=== PATIENT | female | born 1950 | race Caucasian/White ===

== ENCOUNTER → 2018-07-19 | Outpatient (CLI) | payer MEDICARE, OTHER ==
[2018-07-19 10:25] LABS: CHOLESTEROL 196 mg/dL (<200); HDL CHOLESTEROL 39 mg/dL (>40); LDL CHOLESTEROL 99 mg/dL (<100); SERUM ASSESSMENT Clear; TRIGLYCERIDE 293 mg/dL (<150); VLDL 59 mg/dL (<40)
== END ==
LOC: M.LAB 09:41
PROVIDERS: Internal Medicine Cardiovascular Disease
DX: E78.2 Mixed hyperlipidemia (principal)

== ENCOUNTER → 2019-07-03 | Outpatient (CLI) | payer MEDICARE, OTHER | LOC: M.RAD 14:12 | DX: M17.11 Unilateral primary osteoarthritis, right knee (principal); M25.461 Effusion, right knee ==

== ENCOUNTER → 2020-06-11 | Outpatient (CLI) | payer MEDICARE, OTHER | LOC: M.CT 16:30 | PROVIDERS: ATTEND Family Medicine | DX: K31.89 Other diseases of stomach and duodenum (principal); M47.816 Spondylosis without myelopathy or radiculopathy, lumbar region; M48.061 Spinal stenosis, lumbar region without neurogenic claudication; M41.86 Other forms of scoliosis, lumbar region; I70.0 Atherosclerosis of aorta; Z90.49 Acquired absence of other specified parts of digestive tract ==

== ENCOUNTER → 2020-08-28 | Outpatient (CLI) | payer MEDICARE, OTHER | LOC: M.LAB 14:43 | PROVIDERS: ATTEND Surgery | DX: Z01.812 Encounter for preprocedural laboratory examination (principal); K80.20 Calculus of gallbladder without cholecystitis without obstruction; Z20.828 Contact with and (suspected) exposure to other viral communicable diseases ==

== ENCOUNTER → 2020-09-02 | Day surgery (SDC) | payer MEDICARE, OTHER ==
[~2020-09-02] MED LIST: ALDACTONE50 MG PO; CALCIUM 600+D1 EACH PO; CARVEDILOL25 MG PO; ESTRADIOL10 MCG VAG; FENOFIBRATE145 M1 PO; HYDROCHLOROTHIA25 M2 PO; LISINOPRIL5 MG PO; MAGNESIUM500 MG PO; METROGEL60 GM TOP; MULTIVITAMINS PO; NORCO 10-325 T1 EACH PO; REQUIP 1 MG TABL1 M1 PO; VITAMIN D3125 MC3 PO; ZINC50 M2 PO
--- NOTE | ~2020-09-02 | OP ---
[facility] [address] [place] [address] OPERATIVE REPORT Name: JAILENE CABRAL [id number] Admission: 09/02/20 Attend Phys: Yayo Nolasco Discharge: Date of : 48 Report #: [id number] THIS REPORT FOR: cc: Jonathan Lewis Vincent R. DO ~ Yayo Nolasco MD DATE OF SERVICE: 09/02/2020 PREOPERATIVE DIAGNOSIS: Chronic cholecystitis. POSTOPERATIVE DIAGNOSIS: Chronic cholecystitis. OPERATION: Laparoscopic cholecystectomy. SURGEON: Yayo Nolasco MD. ANESTHESIA: General. ESTIMATED BLOOD LOSS: Minimal. SPECIMEN: Gallbladder. DESCRIPTION OF PROCEDURE: After informed consent was obtained, the patient was brought to the operating room and placed supine. SCDs were placed and working, preoperative antibiotics were administered, general anesthesia was induced. The abdomen was prepped and draped in the usual sterile fashion. A 10 mm incision was made above the umbilicus. Fascia was incised and a trocar was placed. Pneumoperitoneum was established. Three right upper quadrant 5 mm ports were placed. Gallbladder was grasped at the fundus and retracted cephalad. Infundibulum was grasped and retracted laterally. I dissected out the cystic duct and cystic artery and the cystic plate. Pictures were taken to document this. Cystic duct and artery were clipped and ligated leaving a clip and a PDS Endoloop on the remaining duct and a clip on the remaining artery. Gallbladder was then taken off the liver bed with electrocautery. It was placed into an Endopouch and removed. The fascia was then closed with a qrofrv-ax-anren 0 Vicryl. Skin was closed with 4-0 Monocryl. Incisions were sealed with Dermabond. COMPLICATIONS: None. DISPOSITION: The patient was taken to recovery in satisfactory condition. By: [id number] Nolasco MD /regino
[2020-09-02 09:52] LABS: HEMATOCRIT 37.1 % (37.0-47.0); HEMOGLOBIN 12.6 gm/dL (12.0-15.0); MCH 30.2 pg (26.0-34.0); MPV 8.3 fl. (7.2-11.1); RBC 4.17 mil/uL (4.20-5.00); WBC 6.3 thou/uL (4.0-11.0)
[2020-09-02 10:00] LABS: CALCIUM 9.8 mg/dL (8.5-10.1); CREATININE 1.6 mg/dL (0.6-1.3); POTASSIUM 3.9 mmol/L (3.5-5.1)
[2020-09-02 10:11] LABS: ALBUMIN 3.7 g/dL (3.4-5.0); TOTAL BILIRUBIN 0.3 mg/dL (<0.1-1.0); TOTAL PROTEIN 7.3 g/dL (6.4-8.2)
--- NOTE | 2020-09-02 12:43 | EKG ---
[place] [address] ELECTROCARDIOGRAM REPORT Name: JAILENE CABRAL [facility]#: [id number] Admission: 09/02/20 Attend Phys: Yayo Anton Discharge: Date of : 48 Date of Service: 09/02/20 0959 Report #: [id number] THIS REPORT FOR: //name// [facility] Test Date: 2020-09-02 Test Time: 09:59:07 Pat Name: JAILENE CABRAL Department: Room: Gender: F Various Exceptionalities Teacher: LISA CANAS : 1950 Requested By: Yayo Nolasco Order Number: [id number] Reading MD: Wesley Valadez Measurements Intervals [place] Rate: 60 P: 43 VT: 197 QRS: 48 QRSD: 119 T: 37 QT: 430 QTc: 430 Interpretive Statements Sinus rhythm Nonspecific intraventricular conduction delay No previous ECG available for comparison Electronically Signed On 09-02-2020 12:43:26 RD PROJECT MANAGER by Wesley Valadez [email or web address] <ELECTRONICALLY SIGNED> By: Wesley Valadez MD, [facility] 09/02/20 1243 0959 0959 Wesley Valadez MD, [facility] /EPI
== END | disposition home or self-care (01) ==
LOC: M.SUR 06:35
PROVIDERS: ATTEND Surgery
DX: K81.1 Chronic cholecystitis (principal); R10.11 Right upper quadrant pain; K21.9 Gastro-esophageal reflux disease without esophagitis; Z79.899 Other long term (current) drug therapy; Z98.890 Other specified postprocedural states; Z88.8 Allergy status to other drugs, medicaments and biological substances

== ENCOUNTER → 2020-09-29 | Outpatient (CLI) | payer MEDICARE, OTHER ==
[~2020-09-29] MED LIST changes: +XARELTO10 MG PO
[2020-09-29 10:16] LABS: HEMATOCRIT 37.5 % (37.0-47.0); HEMOGLOBIN 12.5 gm/dL (12.0-15.0); MCH 29.6 pg (26.0-34.0); MCHC 33.3 g/dL (28.0-37.0); MPV 8.5 fl. (7.2-11.1); RBC 4.21 mil/uL (4.20-5.00); WBC 7.5 thou/uL (4.0-11.0)
[2020-09-29 10:27] LABS: URINE BILIRUBIN NEGATIVE (Negative); URINE BLOOD NEGATIVE (Negative); URINE CLARITY CLEAR; URINE COLOR YELLOW; URINE GLUCOSE-RANDOM NEGATIVE (Negative); URINE KETONES NEGATIVE (Negative); URINE LEUKOCYTES-REFLEX NEGATIVE (Negative); URINE NITRITE-REFLEX NEGATIVE (Negative); URINE PROTEIN NEGATIVE (Negative); URINE UROBILINOGEN 0.2 E.U./dl (0.2-1.0)
[2020-09-29 10:29] LABS: PROTIME 10.4 Seconds (9.20-11.50)
[2020-09-29 10:32] LABS: ALBUMIN 3.8 g/dL (3.4-5.0); CALCIUM 9.9 mg/dL (8.5-10.1); CREATININE 1.5 mg/dL (0.6-1.3); POTASSIUM 4.7 mmol/L (3.5-5.1); TOTAL BILIRUBIN 0.3 mg/dL (<0.1-1.0); TOTAL PROTEIN 7.5 g/dL (6.4-8.2)
== END ==
LOC: M.LAB 10:03
PROVIDERS: ATTEND Orthopaedic Surgery
DX: Z01.812 Encounter for preprocedural laboratory examination (principal); Z20.822 Contact with and (suspected) exposure to COVID-19; M17.11 Unilateral primary osteoarthritis, right knee

== ENCOUNTER 2020-10-06 07:10 | Inpatient (IN) | payer MEDICARE, OTHER ==
[~2020-10-06] VITALS: Ht 165.1 cm; Wt 78.5 kg
--- NOTE | ~2020-10-06 | OP ---
[facility] [address] [place] [address] OPERATIVE REPORT Name: JAILENE CABRAL Room: [address] M.R.#: [id number] Admission: 10/06/20 Attend Phys: Minal Houser Discharge: Date of : 48 Report #: [id number] THIS REPORT FOR: cc: Jonathan Lewis Vincent R. DO ~ Jack Real II, DO DATE OF SERVICE: 10/06/2020 PREOPERATIVE DIAGNOSIS: Right knee osteoarthritis. POSTOPERATIVE DIAGNOSIS: Right knee osteoarthritis. PROCEDURE: Right total knee arthroplasty with Navio. SURGEON: Jack Real II, DO COMMUNICATIONS BILLING ANALYST: TALIA Dukes ANESTHESIA: General endotracheal. ESTIMATED BLOOD LOSS: 50 mL. ANTIBIOTICS: Ancef preoperatively. DRAINS: Medium Hemovac. COMPLICATIONS: None. CONDITION OF THE PATIENT: Stable to recovery room. IMPLANTS: Listed in operative record and progress note. BRIEF HISTORY: The patient was seen in the preoperative area. Preoperative H and P was performed. Site was marked, questions were answered. Risks and benefits were discussed with the patient in detail about surgery. The patient wished to proceed assuming all risks. DESCRIPTION OF PROCEDURE: The patient was taken to the operative suite and placed supine on the operating table, given appropriate anesthesia. A well-padded tourniquet was then applied to the upper thigh, which was inflated to 300 mmHg after gravity exsanguination. The operative knee was sterilely prepped and draped. Surgery began by midline incision. This was carried down to the subcutaneous tissues. A medial parapatellar arthrotomy was performed and carried down to bone. Patella was then everted and excess soft tissues and osteophytes removed from around the femur and tibia. The femoral and tibial [address] [address] OPERATIVE REPORT Name: JAILENE CABRAL Room: [address] [place] ..#: [id number] Admission: 10/06/20 Attend Phys: Minal Houser Discharge: Date of : 48 Report #: [id number] Navio alignment guides were then placed with 2 pins in the tibia and femur respectively. This was then registered in the [employer] software and the robotic handpiece was activated. The appropriate tracker alignments were applied through the femur and tibia. The femur was then cut in appropriate fashion, sized to appropriate size and the 4-in-1 cutting block was then applied, checked with the Navio for appropriate cutting alignment and appropriate cuts were made. Bone was then removed. Tibial baseplate cutting guide was then applied, checked with [employer] robotic handpiece for appropriate alignment, pinned in appropriate position and appropriate cuts were made. This bone was then removed. Excess meniscus was removed from around the inner joint space. The tibial base plate was then applied, checked for rotational alignment with the drop ben and pinned in appropriate position. Femur was then applied and box cut was reamed. This was then trialed with appropriate spacer, which showed excellent fit and fill and excellent stability of the knee throughout all range of motion. The patella was reamed in appropriate fashion and sized to appropriate size. Three peg holes were drilled and it was then trialed and showed excellent flexion and extension, excellent tracking of the patella within the groove. These trials were removed and the tibia was punched in appropriate fashion. Bone ends were cleansed with Pulsavac irrigation and cement was applied to final implants. These were then malleted into position and held the knee in extension and compressed to allow cement to cure. After it cured, excess was removed using a [place]uda and osteotome. Wound was then copiously irrigated and the final spacer was malleted into position. The tourniquet was deflated. Hemostasis was obtained with electrocautery. Pain cocktail was injected. PRP gel sprayed throughout the internal aspects of the knee. Medium Hemovac drain was applied. Capsule was closed with #2 FiberWire and #1 Vicryl in gbwszz-yp-cgzmn fashion. Skin was closed with 2-0 Vicryl and running 3-0 Monocryl. Dermabond and sterile dressing applied. Ac wrap and PolarCare applied. The patient transported to recovery room in stable condition. Counts were correct throughout the procedure. By: 23 Rkobe Real II, DO /nt
[~2020-10-06 07:10] MED LIST changes: -XARELTO10 MG PO
[2020-10-06 07:52] VITALS: BP 127/67
[2020-10-06 13:27] VITALS: BP 119/68
--- NOTE | 2020-10-06 13:32 | NUR ---
PT ADMITTED POST OP KNEE REPLACEMENT. PT ORIENTED TO ROOM. PT ALERT AND ORIENTED AND DROWSY. PAIN MEDS GIVEN IN PACU. PT EDUCATED ON USING CALL LIGHT WHEN NEEDING PAIN MEDS. FALL RISK PRECAUTIONS IN PLACE.
[2020-10-06 16:00] VITALS: BP 131/68
--- NOTE | 2020-10-06 17:18 | NUR ---
PT REMAINED ALERT AND ORIENTED. PT RESTING IN BED. PT DENIES PAIN UNLESS MOVING, PT EDUCATED ON USING CALL LIGHT WHEN NEED PAIN MEDS AND TO KEEP ON TOP OF PAIN POST OP. PT TOLERATING DIET. VOIDING TRIAL IN PLACE. FALL RISK PRECAUTIONS IN PLACE. HOURLY ROUNDING COMPLETED.
[2020-10-06 20:00] VITALS: BP 133/51
[2020-10-07 00:06] VITALS: BP 146/63
[2020-10-07 04:51] VITALS: BP 129/58
--- NOTE | 2020-10-07 05:17 | NUR ---
PT A&O X 4. ON 3L WITH CAPNO. PAIN MANAGED WITH NORCO. HEMOVAC IN PLACE. MEDS GIVEN ORDERED. NO C/O N/V. UP TO BSC WITH MINIMUM ASSIST. POLAR PACK IN PLACE. PT TOLERATED CPM -5 TO 75. CALL LIGHT WITHIN REACH. WILL CONTINUE TO MONITOR.
[2020-10-07 06:19] LABS: HEMATOCRIT 29.4 % (37.0-47.0)
[2020-10-07 07:45] VITALS: BP 140/61
--- NOTE | 2020-10-07 09:23 | NUR ---
RECIEVED O.T. ORDERS. WILL DEFER TO P.T. AT THIS TIME. PLEASE ORDER FURTHER O.T. SERVICES IF NEEDED.
[2020-10-07 11:44] VITALS: BP 131/46
[2020-10-07 16:12] VITALS: BP 157/63
--- NOTE | 2020-10-07 16:30 | NUR ---
SPOKE WITH PT.,WHO WAS IN BED. AT BEDSIDE. PT.A&O. SHE SAID SHE LIVES WITH HER . THERE ARE 12 STAIRS TO GET INSIDE, BUT ONCE IN NO STAIRS. SHE IS HOPING SHE DOES THE STAIRS BETTER TOMORROW,SO SHE CAN GO HOME. SHE HAS A WALKER IN ROOM FROM HOME.THEY HAVE GRAB BARS,HIGH TOILETS. SHE IS NORMALLY INDEPENDENT. HER CAN ASSIST HER AT DISCHARGE. SHE WOULD LIKE TO USE [facility] AT DISCHARGE. REFERRAL FAXED TO [facility] CM WILL SEE IN AM AFTER THERAPY SESSION.
--- NOTE | 2020-10-07 17:37 | NUR ---
PATIENT CURRENTLY SITTING UP IN BED EATING DINNER WITH AT BEDSIDE. PATIENT HAS REMAINED A&OX4, COOPERATIVE WITH CARES THIS SHIFT. PATIENT IS CURRENTLY ON ROOM AIR PER HER REQUEST (SHE DOES NOT WEAR O2 AT HOME) AND LAST O2 SATURATION WAS 95%. HALF NS CURRENLTY INFUSING IN LEFT FOREARM ORDERED. PATIENT HAS REQUIRED PRN PAIN MEDICATION DURING SHIFT HOWEVER WISHES NOT TO HAVE OXYCODONE UNLESS IS IT BED TIME. PATIENT PARTICIPATED WITH THERAPY TODAY HOWEVER PT DID NOT FEEL SHE WAS QUITE READY TO BE DISCHARGED HOME TODAY. CALL LIGHT AND FREQUENTLY USED ITEMS WITHIN REACH.
[2020-10-07 20:00] VITALS: BP 175/77
[2020-10-08] VITALS (7 sets, daily range): BP systolic 110–158; BP diastolic 53–65
[2020-10-08 04:21] LABS: HEMATOCRIT 28.7 % (37.0-47.0); HEMOGLOBIN 9.7 gm/dL (12.0-15.0)
--- NOTE | 2020-10-08 07:50 | NUR ---
Alert and oriented x 4. She is up with assist x 1 and walker to bedside commode. She is voiding well. Milk of mag given at bedtime. She has polarcare to rt knee and dressing is intact with hemovac in place. She has been in CPM x 2 this shift, -5 to 76. She has had cox meds about evry 2 hours. She has slept well.
[2020-10-08] MEDS ORDERED: XARELTO10 MG PO (09:34)
--- NOTE | 2020-10-08 16:00 | NUR ---
[place]/PT SAID PT.NOT SAFE FOR DISCHARGE. UNABLE TO COMPLETE STAIR TRAINING DUE TO PAIN. DISCUSSED WITH PT. SHE SAID SHE WANTED TO STAY ONE MORE DAY. SHE DID NOT WANT TO TALK ABOUT GOING TO SNF.
--- NOTE | 2020-10-08 18:33 | NUR ---
PATIENT HAS REMAINED A&OX4 THIS SHIFT, PLEASANT AND COOPERATIVE WITH CARES. PATIENT HAS WORKED WELL WITH THERAPY THIS SHIFT HOWEVER PT FELT SHE NEEDED TO STAY ONE MORE NIGHT AND HAVE AT LEAST ONE MORE SESSION WITH STAIRS BEFORE GOING HOME. PATIENT HAS COMPLAINED LESS OF PAIN AND REQUIRED LESS PRN PAIN MEDICATION THIS SHIFT. PATIENT HAD MODERATE BM THIS EVENING AND STATES "I FEEL BETTER". CALL LIGHT AND FREQUENTLY USED ITEMS WITHIN REACH.
[2020-10-09 04:06] VITALS: BP 111/66
--- NOTE | 2020-10-09 07:27 | NUR ---
Alert and oriented x 4. Rt knee acewrap dressing with polarcare in place. Vitals are in stable. She was in CPM 2 hours last evening -5-78. She is alernating hydrocodone with oxycodone for knee pain. She gets up very well with walker and gaitbelt she had a BM yesterday.
[2020-10-09 08:00] VITALS: BP 130/57
[2020-10-09 13:56] VITALS: BP 147/58
[2020-10-09 15:18] VITALS: BP 147/58
--- NOTE | 2020-10-09 15:21 | NUR ---
PT.TO DISCHARGE TODAY,HOME WITH HOME HEALTH. NOTIFIED [facility] AND FAXED DISCHARGE ORDERS TO THEM. SHARAD SAID SHE RECEIVED THE ORDERS AND THEY WILL SEE HER THIS WEEKEND.
--- NOTE | 2020-10-09 15:46 | NUR ---
PT ALERT AND ORIENTED. PT TAKEN OUT BY WHEELCHAIR. PT TOLERATED WELL. PT SAFE WITH STANDBY ASSIST TO THE CAR. PT STATES PAIN MED HELPED. PT LEFT WITH VISHNU HOSE IN PLACE. HEMAVAC REMOVED. PRESSURE APPLIED. GAUZE AND TAGADERM APPLIED TO SITE. PT LEFT WITH POLAR PACK AND CPM MACHINE. SURGICAL DRESSING REMAINS IN PLACE ON RIGHT KNEE.
[2020-10-09 16:56] VITALS: BP 147/58
== END 2020-10-09 16:00 | disposition home health service (06) | DRG 470 ==
LOC: M.TBA 07:10 → M.3W 07:10 → M.ORTHSURG 08:53 → M.3W 13:07
PROVIDERS: Orthopaedic Surgery; ADMIT Internal Medicine; ATTEND Internal Medicine
PROC: 0SRC0J9 Replacement of Right Knee Joint with Synthetic Substitute, Cemented, Open Approach (ICD-10-PCS; principal; 2020-10-06)
PROC: 8E0Y0CZ Robotic Assisted Procedure of Lower Extremity, Open Approach (ICD-10-PCS; principal; 2020-10-06)
DX: M17.11 Unilateral primary osteoarthritis, right knee (principal); K21.9 Gastro-esophageal reflux disease without esophagitis; G25.81 Restless legs syndrome; G62.9 Polyneuropathy, unspecified; N18.30 Chronic kidney disease, stage 3 unspecified; I12.9 Hypertensive chronic kidney disease with stage 1 through stage 4 chronic kidney disease, or unspecified chronic kidney disease; E78.5 Hyperlipidemia, unspecified; Z88.8 Allergy status to other drugs, medicaments and biological substances; Z90.49 Acquired absence of other specified parts of digestive tract; Z79.899 Other long term (current) drug therapy

== ENCOUNTER → 2021-01-25 | Outpatient (CLI) | payer MEDICARE, OTHER ==
[~2021-01-25] MED LIST changes: +XARELTO10 MG PO
== END ==
LOC: M.RAD 13:18
PROVIDERS: ATTEND Family Medicine
DX: Z78.0 Asymptomatic menopausal state (principal); N91.2 Amenorrhea, unspecified; Z87.39 Personal history of other diseases of the musculoskeletal system and connective tissue

== ENCOUNTER → 2021-07-20 | Day surgery (SDC) | payer MEDICARE, OTHER ==
[~2021-07-20] MED LIST changes: +LISINOPRIL10 MG PO; +NORCO5 PO
--- NOTE | ~2021-07-20 | OP ---
[facility] [address] [place] [address] OPERATIVE REPORT Name: JAILENE CABRAL Room: [facility].#: [id number] Admission: 07/20/21 Attend Phys: Yayo Nolasco Discharge: Date of : 48 Report #: [id number] THIS REPORT FOR: cc: Jonathan Lewis Vincent R. DO Patterson,Yayo Butler MD ~ DATE OF SURGERY: 07/20/2021 PREOPERATIVE DIAGNOSIS: Incarcerated ventral incisional hernia. POSTOPERATIVE DIAGNOSIS: Incarcerated ventral incisional hernia. OPERATION: Laparoscopic repair of incarcerated ventral incisional hernia with mesh. SURGEON: Yayo Nolasco MD ANESTHESIA: General. ESTIMATED BLOOD LOSS: Minimal. SPECIMENS: None. DESCRIPTION OF PROCEDURE: After informed consent was obtained, the patient was brought to the operating room and placed supine. SCDs were placed and working, preoperative antibiotics were administered, general anesthesia was induced. The abdomen was prepped and draped in the usual sterile fashion. A 5 mm incision was made in the left upper quadrant. A 5 mm trocar was placed under direct vision. Pneumoperitoneum was established. A left-sided 8 mm trocar and a right-sided 5 mm trocar was placed. She had a hernia defect in the midline 2 cm above the umbilicus. All the hernia contents were reduced. A defect measured approximately 2 x 1 cm. I inserted an 11 cm Bard Ventralight mesh. It was tacked up to the abdominal wall and covered the defect widely with an an absorbable tacker. The ports were then removed under direct vision. The skin was closed with 4-0 Monocryl. Incisions were dressed with Steri-Strips. COMPLICATIONS: None. DISPOSITION: The patient was taken to recovery in satisfactory condition. By: [id number] Nolasco MD /nt
[2021-07-20 06:27] LABS: HEMATOCRIT 37.2 % (37.0-47.0); HEMOGLOBIN 12.6 gm/dL (12.0-15.0); MCH 30.3 pg (26.0-34.0); MCV 89.2 fL (80.0-100.0); MPV 8.9 fl. (7.2-11.1); RBC 4.17 mil/uL (4.20-5.00); RDW-CV 13.2 % (10.5-14.5); WBC 5.3 thou/uL (4.0-11.0)
[2021-07-20 06:37] LABS: CALCIUM 9.5 mg/dL (8.5-10.1); CREATININE 1.9 mg/dL (0.6-1.3); POTASSIUM 4.3 mmol/L (3.5-5.1)
--- NOTE | 2021-07-20 10:05 | EKG ---
[place] [address] ELECTROCARDIOGRAM REPORT Name: JAILENE CABRAL Room: [facility]#: [id number] Admission: 07/20/21 Attend Phys: Yayo Anton Discharge: Date of : 48 Date of Service: 07/20/21 0704 Report #: [id number] THIS REPORT FOR: //name// [facility] Test Date: 2021-07-20 Test Time: 07:04:33 Pat Name: JAILENE CABRAL Department: Room: Gender: F Steel Pourer: NORI : 1950 Requested By: Yayo Nolasco Order Number: [id number] Jaimie MD: Wesley Valadez Measurements Intervals [place] Rate: 57 P: 43 WY: 219 QRS: 41 QRSD: 121 T: 24 QT: 444 QTc: 433 Interpretive Statements Sinus rhythm Borderline prolonged [place] interval Compared to ECG 09/02/2020 09:59:07 no change Electronically Signed On 07-20-2021 10:05:22 AGRICULTURAL LENDER by Wesley Valadez [email or web address] <ELECTRONICALLY SIGNED> By: Wesley Valadez MD, [facility] 07/20/21 1005 0704 0704 Wesley Valadez MD, [facility] /EPI
== END | disposition home or self-care (01) ==
LOC: M.SUR 05:43
PROVIDERS: ATTEND Surgery
DX: K43.0 Incisional hernia with obstruction, without gangrene (principal); I12.9 Hypertensive chronic kidney disease with stage 1 through stage 4 chronic kidney disease, or unspecified chronic kidney disease; N18.30 Chronic kidney disease, stage 3 unspecified; K21.9 Gastro-esophageal reflux disease without esophagitis; E78.1 Pure hyperglyceridemia; Z98.890 Other specified postprocedural states; Z79.899 Other long term (current) drug therapy; Z20.822 Contact with and (suspected) exposure to COVID-19; Z88.8 Allergy status to other drugs, medicaments and biological substances; Z90.49 Acquired absence of other specified parts of digestive tract

== ENCOUNTER → 2021-08-23 | Outpatient (CLI) | payer OTHER | LOC: M.CT 10:32 | PROVIDERS: ATTEND Internal Medicine Cardiovascular Disease | DX: Z13.6 Encounter for screening for cardiovascular disorders (principal); I25.10 Atherosclerotic heart disease of native coronary artery without angina pectoris; R91.1 Solitary pulmonary nodule ==